=== PATIENT | male | born 1965 | race Two or more races ===

== ENCOUNTER 2017-04-05 17:47 | Emergency (ER) | payer MEDICARE, OTHER ==
[~2017-04-05] VITALS: Ht 157.5 cm; Wt 90.7 kg
[2017-04-05] MEDS ORDERED: UNOBMED (18:12)
[2017-04-05 18:42] LABS: ALANINE AMINOTRANSFERASE 20 U/L (3-41); ALBUMIN/GLOBULIN RATIO 1.7 (1.0-2.7); ALCOHOL 385 mg/dL; ANION GAP 20 (5-15); ASPARTATE AMINO TRANSFERASE 19 U/L (5-40); CALCIUM 8.6 mg/dL (8.6-10.2); CARBON DIOXIDE 22 mEQ/L (20-30); CHLORIDE 94 mEQ/L (98-107); CREATININE 0.8 mg/dL (0.7-1.2); GLOMERULAR FILTRATION RATE > 60 mL/min (>60); HEMOLYSIS 8; POTASSIUM 3.3 mEQ/L (3.4-4.9); SODIUM 136 mEQ/L (135-145); TOTAL PROTEIN 6.9 g/dL (6.6-8.7)
[2017-04-05 18:51] LABS: BASOPHILS % (AUTO) 1.3 % (0.0-2.0); EOSINOPHILS % (AUTO) 1.4 % (0.0-3.0); LYMPHOCYTES % (AUTO) 36.2 % (20.0-45.0); MEAN CORPUSCULAR HEMOGLOBIN 31.1 PG (27.0-31.0); MEAN CORPUSCULAR HGB CONC 36.3 G/DL (32.0-36.0); MEAN CORPUSCULAR VOLUME 86 FL (80-99); MEAN PLATELET VOLUME 9.2 FL (6.5-10.1); MONOCYTES % (AUTO) 6.5 % (1.0-10.0); NEUTROPHILS % (AUTO) 54.6 % (45.0-75.0); PLATELET COUNT 145 K/UL (150-450); RED BLOOD COUNT 4.51 M/UL (4.70-6.10); RED CELL DISTRIBUTION WIDTH 12.8 % (11.6-14.8); WHITE BLOOD COUNT 6.1 K/UL (4.8-10.8)
[2017-04-05] MEDS ORDERED: Thiamine HCl 100mg/ml Inj ONE (18:56)
[2017-04-05] MEDS ORDERED: Thiamine HCl 100 MG in D5W 55 ML IVPB SCH (19:00)
--- NOTE | 2017-04-05 19:39 | Emergency Room Report ---
History of Present Illness General Chief Complaint: Alcohol Intoxication Source: EMS Present Illness HPI Patient is a 51-year-old male brought in by EMS from a bus stop. The patient prior history of being wheelchair-bound. The patient was noted to be hypotensive by EMS was started on IV fluids. History is markedly limited by patient's altered mental status. Reportedly had been drinking all earlier in the day. Allergies: Coded Allergies: UNABLE TO ASSESS (Unverified , 04/05/17) Patient History Past Medical History: see triage record Reviewed Nursing Documentation: PMH: Agreed, PSxH: Agreed Nursing Documentation-PMH Past Medical History: No History, Except For Hx Diabetes: Yes Review of Systems All Other Systems: negative except mentioned in HPI Physical Exam Vital Signs Date Time Temp Pulse Resp B/P Pulse Ox O2 Delivery O2 Flow Rate FiO2 04/05/17 17:45 114 19 101/56 95 Room Air Sp02 EP Interpretation: reviewed, normal General Appearance: normal inspection, well appearing, no apparent distress, alert, GCS 15 Head: atraumatic ENT: normal ENT inspection, hearing grossly normal, normal voice Neck: normal inspection, full range of motion, supple, no bony tend Respiratory: normal inspection, lungs clear, normal breath sounds, no respiratory distress, no retraction, no wheezing Cardiovascular #1: regular rate, rhythm, no edema Gastrointestinal: normal inspection, normal bowel sounds, non tender, soft, no guarding, no hernia Genitourinary: no CVA tenderness Musculoskeletal: normal inspection, back normal, normal range of motion Neurologic: normal inspection, alert, responsive, speech normal Psychiatric: normal inspection, judgement/insight normal, mood/affect normal Skin: normal inspection, normal color, no rash Medical Decision Making Diagnostic Impression: Primary Impression: Acute alcoholic intoxication ER Course Patient presented for altered mental status.Differential diagnosis included but was not limited to ischemic stroke, subarachnoid hemorrhage, hypoglycemia, spinal cord injury, neurodegenerative disorder, urinary tract infection, hypoxemia alcohol intoxication.The patient had been noted to have the exam consistent with alcohol intoxication. Patient started on IV fluids the he was given IV thiamine. Patient gradual improvement in mental status.The patient was given insulinThe patient stated he wanted go home. Patient declined any further care and placement.Patient was noted to be wheelchair-bound. The patient good plan for self care. Labs Test 04/05/17 18:09 White Blood Count 6.1 K/UL (4.8-10.8) Red Blood Count 4.51 M/UL (4.70-6.10) Hemoglobin 14.0 G/DL (14.2-18.0) Hematocrit 38.7 % (42.0-52.0) Mean Corpuscular Volume 86 FL (80-99) Mean Corpuscular Hemoglobin 31.1 PG (27.0-31.0) Mean Corpuscular Hemoglobin Concent 36.3 G/DL (32.0-36.0) Red Cell Distribution Width 12.8 % (11.6-14.8) Platelet Count 145 K/UL (150-450) Mean Platelet Volume 9.2 FL (6.5-10.1) Neutrophils (%) (Auto) 54.6 % (45.0-75.0) Lymphocytes (%) (Auto) 36.2 % (20.0-45.0) Monocytes (%) (Auto) 6.5 % (1.0-10.0) Eosinophils (%) (Auto) 1.4 % (0.0-3.0) Basophils (%) (Auto) 1.3 % (0.0-2.0) Sodium Level 136 mEQ/L (135-145) Potassium Level 3.3 mEQ/L (3.4-4.9) Chloride Level 94 mEQ/L (98-107) Carbon Dioxide Level 22 mEQ/L (20-30) Anion Gap 20 (5-15) Blood Urea Nitrogen 13 mg/dL (7-23) Creatinine 0.8 mg/dL (0.7-1.2) Estimat Glomerular Filtration Rate > 60 mL/min (>60) Glucose Level 369 mg/dL (74-106) Calcium Level 8.6 mg/dL (8.6-10.2) Total Bilirubin 0.4 mg/dL (0.0-1.2) Aspartate Amino Transf (AST/SGOT) 19 U/L (5-40) Alanine Aminotransferase (ALT/SGPT) 20 U/L (3-41) Alkaline Phosphatase 105 U/L (40-129) Total Protein 6.9 g/dL (6.6-8.7) Albumin 4.4 g/dL (3.5-5.2) Globulin 2.5 g/dL Albumin/Globulin Ratio 1.7 (1.0-2.7) Serum Alcohol 385 mg/dL Acetone Level Negative (NEGATIVE) EKG Diagnostic Results Rate: tachycardiac Rhythm: NSR - 113, other ST Segments: no acute changes Rhythm Strip Diag. Results EP Interpretation: yes Rhythm: no PVC's, no ectopy, other - sinus tachycardia Last Vital Signs Date Time Temp Pulse Resp B/P Pulse Ox O2 Delivery O2 Flow Rate FiO2 04/05/17 17:45 114 19 101/56 95 Room Air Status: improved Disposition: HOME, SELF-CARE Condition: Stable Referrals: NOT CHOSEN [facility]/,REFERRING (PCP) Dom Monge April 05, 2017 19:39
[2017-04-05 19:52] VITALS: BP 101/56
[2017-04-05 22:01] VITALS: BP 102/61
[2017-04-06 01:25] VITALS: BP 107/63
--- NOTE | 2017-04-07 14:46 | Cardiology Report ---
APPROVED REPORT EKG Measurement Heart [id number] Sinus tachycardia Otherwise normal ECG
== END 2017-04-06 01:20 | disposition home or self-care (01) ==
LOC: EDBD 17:47 → EMR 18:00
DX: F10.129 Alcohol abuse with intoxication, unspecified (principal); I95.9 Hypotension, unspecified; E11.9 Type 2 diabetes mellitus without complications; R00.0 Tachycardia, unspecified
CPT/HCPCS: 36415; 80053; 82009; 82962; 85025; 93005; 96360; 96372; 99284; G0480; J1815; 80329

== ENCOUNTER 2018-12-05 16:05 | Emergency (ER) | payer MEDICARE, OTHER ==
[~2018-12-05] VITALS: Ht 170.2 cm; Wt 77.1 kg
[~2018-12-05 16:05] MED LIST: UNOBMED
[2018-12-05 16:17] VITALS: BP 147/81
--- NOTE | 2018-12-05 16:19 | NUR ---
ED Nurse Note:pt. was BIBA from the street for ETOH, pt. has his own weelchair, A/Ox4
[2018-12-05 16:54] VITALS: BP 147/81
--- NOTE | 2018-12-05 16:58 | NUR ---
ED Nurse Note:pt. is A/Ox4 he didn't want to stay longer and left ER condition stable
--- NOTE | 2018-12-05 17:04 | Emergency Room Report ---
History of Present Illness General Chief Complaint: Alcohol Intoxication Source: Patient, EMS Present Illness HPI 53-year-old male presents to the emergency department initially brought in by ambulance as he called 911 on himself because he "felt sick". Once at the ED, the patient states that he feels better. He reports that he was drinking earlier today and denies trauma or fall. Denies chest pain, shortness of breath , sudden onset headache, nausea/vomiting, abdominal pain or tenderness.Pt. Pt is in wheel chair not ambulatory- chronically. he is holding normal conversations. Denies pain, denies pmhx. Allergies: Coded Allergies: No Known Allergies (Unverified , 12/05/18) UNABLE TO ASSESS (Unverified , 04/05/17) Patient History Past Medical History: see triage record Past Surgical History: none Pertinent Family History: none Reviewed Nursing Documentation: PMH: Agreed; PSxH: Agreed Nursing Documentation-PMH Past Medical History: No History, Except For Hx Hypertension: Yes Hx Diabetes: Yes Review of Systems All Other Systems: negative except mentioned in HPI Physical Exam Vital Signs Date Time Temp Pulse Resp B/P (MAP) Pulse Ox O2 Delivery O2 Flow Rate FiO2 12/05/18 16:02 98.8 112 18 147/81 98 Room Air Sp02 EP Interpretation: reviewed, normal General Appearance: no apparent distress, alert, GCS 15, non-toxic Head: normocephalic, atraumatic Eyes: bilateral eye normal inspection, bilateral eye PERRL ENT: hearing grossly normal, normal voice Neck: full range of motion Respiratory: chest non-tender, lungs clear, normal breath sounds, speaking full sentences Cardiovascular #1: regular rate, rhythm, normal capillary refill Gastrointestinal: normal bowel sounds, non tender, soft Rectal: deferred Musculoskeletal: back normal, normal range of motion, non-tender, other - not ambulatory- wheelchair bound Neurologic: alert, oriented x3, responsive, motor strength/tone normal, sensory intact, speech normal, grossly normal Psychiatric: judgement/insight normal Skin: normal color, no rash, warm/dry, well hydrated, other - no abrasions, bruises or open wounds. Medical Decision Making PA Attestation Dr. Lovett is my supervising Physician whom patient management has been discussed with. Diagnostic Impression: Primary Impression: Acute alcoholic intoxication Qualified Codes: F10.929 - Alcohol use, unspecified with intoxication, unspecified ER Course 53-year-old male presents to the emergency department initially brought in by ambulance as he called 911 on himself because he "felt sick". Once at the ED, the patient states that he feels better. He reports that he was drinking earlier today and denies trauma or fall. Denies chest pain, shortness of breath , sudden onset headache, nausea/vomiting, abdominal pain or tenderness.Pt. Pt is in wheel chair not ambulatory- chronically. he is holding normal conversations. Denies pain, denies pmhx. Ddx considered but are not limited to ETOH, Trauma, Syncope, dementia, OD Vital signs: are WNL, pt. is afebrile. mildly tachy 110-112 H&PE are most consistent with ETOH abuse. ORDERS: none required at this time ED INTERVENTIONS: Observance while he detoxifies. Pt. was allowed to sleep/rest. A&O x 3 He wants to leave. DISCHARGE: At this time pt. is stable for d/c to home. Will provide printed patient care instructions, and any necessary prescriptions. Care plan and follow up instructions have been discussed with the patient prior to discharge. Last Vital Signs Date Time Temp Pulse Resp B/P (MAP) Pulse Ox O2 Delivery O2 Flow Rate FiO2 12/05/18 16:54 98.8 110 18 147/81 98 Room Air Disposition: HOME, SELF-CARE Condition: Stable Referrals: NOT CHOSEN [facility]/MD,REFERRING (PCP) Patient Instructions: Alcohol Intoxication, [id number] Additional Instructions: Stop Drinking Excessively Follow up with a Primary Care Provider in 3-5 days, even if your symptoms have resolved. --Please review list of primary care clinics, if you do not already have a primary care provider Return sooner to ED if new symptoms occur, or current symptoms become worse. - Please note that this Emergency Department Report was dictated using [email or web address] teacher technology software, occasionally this can lead to erroneous entry secondary to interpretation by the dictation equipment. Theresa Hutson Dec 05, 2018 17:04
== END 2018-12-05 17:00 | disposition home or self-care (01) ==
LOC: EDBD 16:05 → EMR 16:20
DX: F10.129 Alcohol abuse with intoxication, unspecified (principal); E11.9 Type 2 diabetes mellitus without complications; I10 Essential (primary) hypertension
CPT/HCPCS: 99282